=== PATIENT | male | born 1950 | race Caucasian/White ===

== ENCOUNTER 2017-11-16 23:47 | Inpatient (IN) | payer OTHER, MEDICARE ==
[~2017-11-16] VITALS: Ht 182.9 cm; Wt 74.4 kg
[2017-11-17] MEDS ORDERED: ASPIRIN 81 MG TAB.CHEW PO ONE
[2017-11-17] MEDS ORDERED: IV NS 0.9% 1,000 ML BAG IV ONE
[2017-11-17] MEDS ORDERED: MORPHINE SULFATE INJ 2 MG/ML DISP.SYRIN IV ONE
[2017-11-17] MEDS ORDERED: NITROGLYCERIN 0.4 MG/TAB BOTTLE SL ONE
[2017-11-17] MEDS ORDERED: NITROGLYCERIN PACKET 1 GM PACKET TD ONE
[2017-11-17] MEDS ORDERED: ONDANSETRON HCL/PF 4 MG/2 ML VIAL IVP ONE
--- NOTE | 2017-11-17 00:05 | NUR ---
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 PT STATES CP RADIATED DOWN L ARM WITH PRESSURE LIKE PAIN 12/11. -N/V/D. +DIZZINESS. PT STATES HE HAS BEEN DRINKING ALCOHOL PAID SEARCH ANALYST. PT IS AAOX4. RESP EVEN AND UNLABORED. NO S/S OF ACUTE DISTRESS NOTED. SKIN WARM AND DRY TO TOUCH. PT SAFETY AND COMFORT MEASURES IN PLACE. PT PLACED ON HALL PORTER AND POX. PER , PT PLACED ON NC 3L/M. BEDSIDE FOR EVAL. WILL CONTINUE TO MONITOR PT.
[2017-11-17] MEDS ORDERED: MORPHINE SULFATE INJ 4 MG/ML DISP.SYRIN ONE (00:10)
[2017-11-17] MEDS ORDERED: ONDANSETRON HCL/PF 4 MG/2 ML VIAL ONE (00:10)
[2017-11-17] MEDS ORDERED: NITROGLYCERIN 0.4 MG/TAB BOTTLE ONE (00:11)
[2017-11-17] MEDS ORDERED: ASPIRIN 81 MG TAB.CHEW ONE (00:11)
[2017-11-17] MEDS ORDERED: NITROGLYCERIN PACKET 1 GM PACKET ONE (00:11)
[2017-11-17 00:15] LABS: BASOPHILS % (AUTO) 0.7 % (0.0-2.0); EOSINOPHILS % (AUTO) 5.7 % (0.0-6.0); HEMATOCRIT 46 % (39-51); HEMOGLOBIN 15.4 g/dL (13.5-17.5); LYMPHOCYTES # (AUTO) 1.9 /CMM (0.8-4.8); LYMPHOCYTES % (AUTO) 30.9 % (20.0-44.0); MEAN CORPUSCULAR HGB CONC 34 g/dl (31.0-36.0); MEAN CORPUSCULAR VOLUME 89 fL (80-96); MONOCYTES # (AUTO) 0.5 /CMM (0.1-1.30); MONOCYTES % (AUTO) 7.3 % (2.0-12.0); NEUTROPHILS # (AUTO) 3.5 /CMM (1.8-8.9); NEUTROPHILS % (AUTO) 55.4 % (43.0-81.0); PLATELET COUNT (AUTO) 186 /CMM (150-450); RED BLOOD CELL COUNT(AUTO) 5.11 MIL/uL (4.5-6.0); WHITE BLOOD COUNT (AUTO) 6.2 K/uL (4.3-11.0)
--- NOTE | 2017-11-17 00:22 | NUR ---
PT RECEIVED 1 DOSE OF SUBLINGUAL NITRO, SECOND DOSE HELD D/T LOW BP. MD MADE AWARE. PT STATES CP DECREASED FROM 6/10 TO 3/10.
[2017-11-17 00:23] LABS: CALCIUM, SERUM 9.5 mg/dL (8.5-10.1); POTASSIUM 3.4 mmol/L (3.5-5.1)
[2017-11-17 00:28] LABS: INR 0.98 (0.87-1.13)
[2017-11-17 00:31] LABS: TROPONIN I 0.033 ng/mL (0.00-0.056)
--- NOTE | 2017-11-17 00:35 | NUR ---
PT'S BP LOW. MD MADE AWARE. PER , HOLD NITRO-PATCH
[2017-11-17 00:36] LABS: ALBUMIN 3.6 g/dL (3.4-5.0); BILIRUBIN,DIRECT 0.1 mg/dL (0.0-0.2); BILIRUBIN,TOTAL 0.2 mg/dL (0.2-1.0); TOTAL PROTEIN, SERUM 7.5 g/dL (6.4-8.2)
--- NOTE | 2017-11-17 01:38 | NUR ---
report given to cable television technicianvicente howe for alec.
--- NOTE | 2017-11-17 01:43 | NUR ---
PT DOES NOT HAVE HIS MEDICATION LIST ON HIM AND IS UNABLE TO REMEMBER HIS MEDICATIONS.
[2017-11-17 02:10] VITALS: BP 131/87
[2017-11-17 02:15] VITALS: BP 131/87
--- NOTE | 2017-11-17 02:20 | NUR ---
RECEIVED THE PT FROM ER IN STABLE CONDITION. A, [facility], MOSTLY [id number] W/ LIMITED [facility]. UNABLE TO PROVIDE FULL MEDICAL HX DUE TO LANGUAGE BARRIER. BREATHING EVENLY. NO SOB. NAD. STILL W/ C/O CHEST PAIN. REFUSED MORPHINE AT THIS TIME. VSS . PT WS PLACED ON MARGARINE MAKER READING V PACING. NEEDS ATTENDED. BED LOW LOCKED .CALL LIGHT WITHIN REACH. WILL CONT TO MONITOR AND WILL F/U W/ MD'S ORDERS/
--- NOTE | 2017-11-17 02:28 | NUR ---
called lab to draw the troponin level due at 0200.
[2017-11-17] MEDS ORDERED: NITROGLYCERIN 0.4 MG/TAB BOTTLE SL PRN (02:30)
[2017-11-17] MEDS ORDERED: MORPHINE SULFATE INJ 4 MG/ML DISP.SYRIN IV PRN (02:30)
[2017-11-17] MEDS ORDERED: MAG HYDROX/AL HYDROX/SIMETH 30 ML UDC PO PRN (02:30)
[2017-11-17] MEDS ORDERED: HYDROCODONE/APAP 5/325MG 1 EACH TABLET PO PRN (02:30)
[2017-11-17] MEDS ORDERED: ONDANSETRON HCL/PF 4 MG/2 ML VIAL IVP PRN (02:30)
[2017-11-17] MEDS ORDERED: ACETAMINOPHEN 325 MG TABLET PO PRN (02:30)
[2017-11-17] MEDS ORDERED: Z GUARD REMEDY 2 OZ OINT TP PRN (02:30)
[2017-11-17] MEDS ORDERED: ENOXAPARIN SODIUM 40 MG/0.4 ML DISP.SYRIN SQ SCH ×2 (02:30→21:00)
[2017-11-17] MEDS ORDERED: ZOLPIDEM TARTRATE 5 MG TABLET PO PRN (02:30)
[2017-11-17 04:00] VITALS: BP 96/51
--- NOTE | 2017-11-17 06:37 | NUR ---
PT IN BED AWAKE SLEEPING AROUSES EASILY.BREATHING EVENLY. NO SOB. NO ACUTE EVENT DURING THE NIGHT .. NO C/O PAIN OR DISCOMFORT AT THIS TIME. NO C/O CP. V PACING ON TELE MONITOR. NEEDS ATTENDED. ASSISTED W/ ADLS. BED LOW LOCKED. CALL LIGHT WITHIN REACH,.WILL CONT TO MONITOR AND WILL ENDORSE TO AM SHIFT FOR MELISA . PATIENT DOES NOT RECAL THE LIST OF THE MEDICATIONS HE IS TAKING AT HOME . PT WAS ADVISED TO ASK THE FAMILY TO PROVIDED US WITH THE LIST. WILL ENDORSE TO AM SHIFT TO F/U.
--- NOTE | 2017-11-17 07:10 | NUR ---
MS RN OPENING NOTES PATIENT IN BED ALERT ORIENTED X 4. NO ACUTE DISTRESS NOTED, BREATHING UNLABORED.DENIED ANY PAIN. IV ACCESS PATENT AND INTACT. SAFETY MEASURES IN PLACE. CALL LIGHT WITHIN REACH. WILL CONTINUE TO MONITOR ACCORDINGLY.
[2017-11-17 08:00] VITALS: BP 103/65
[2017-11-17] MEDS ORDERED: IV NS 0.9% 1,000 ML IV PRN (08:32)
--- NOTE | 2017-11-17 08:37 | NUR ---
MS RN NOTES SEEN AND EVALUATED BY DR FLYNN WITH NEW ORDERS MADE. NOTED AND CARRIED OUT. PATIENT ON NPO FOR STRESS TEST.
--- NOTE | 2017-11-17 08:37 | NUR ---
LAST MODEL DEPARTMENT SUPERVISOR NOTES SEEN AND EVALUATED BY DR FLYNN WITH NEW ORDERS MADE. NOTED AND CARRIED OUT.
[2017-11-17] MEDS: POTASSIUM CHLORIDE 20 MEQ TAB.PRT.SR PO SCH ×6 (09:00→14:55)
[2017-11-17 10:06] LABS: THYROID STIMULATING HORMONE 0.957 uIU/mL (0.358-3.74)
[2017-11-17] MEDS ORDERED: SIMV20TA6 PO (10:24)
[2017-11-17] MEDS ORDERED: VALS320T16 PO (10:24)
[2017-11-17] MEDS ORDERED: PANT40TA4 PO (10:24)
[2017-11-17] MEDS ORDERED: HYDR12.55 PO (10:24)
[2017-11-17] MEDS ORDERED: ZOLP10TA6 PO (10:24)
[2017-11-17] MEDS ORDERED: ROPI0.5T PO (10:24)
--- NOTE | 2017-11-17 10:45 | NUR ---
RN NOTES PATIENT PICKED UP FOR STRESS TEST IN STABLE CONDITION.
[2017-11-17] MEDS ORDERED: REGADENOSON 0.4 MG/5 ML DISP.SYRIN IVP ONE (11:14)
--- NOTE | 2017-11-17 11:45 | NUR ---
MONUMENT MASON NOTES SEEN AND EVALUATED BY ELLA MCCARTHY DNP, MADE AWARE OF HOME MEDICATIONS NEEDS TO BE RECONCILLED. WITH NEW ORDERS MADE, NOTED AND CARRIED OUT.
--- NOTE | 2017-11-17 11:50 | NUR ---
RN NOTES PATIENT CAME BACK IN STABLE CONDITION, STRESS TEST DONE. PATIENT NO LONGER ON NPO.
[2017-11-17] MEDS: ASPIRIN 81 MG TAB.CHEW PO SCH (12:18)
[2017-11-17 15:53] VITALS: BP 116/72
[2017-11-17] MEDS ORDERED: ropiniROLE 0.5 MG TABLET PO SCH (18:00)
[2017-11-17] MEDS ORDERED: SIMVASTATIN 20 MG TABLET PO SCH (18:00)
--- NOTE | 2017-11-17 18:47 | NUR ---
RN NOTES PATIENT IN BED ALERT ORIENTED X 3. NO ACUTE DISTRESS NOTED. BREATHING UNLABORED. IV ACCESS PATENT AND INTACT, NO REDNESS OR SWELLING NOTED. DUE MEDICATIONS GIVEN, NO ASE NOTED. NEEDS ATTENDED AND ANTICIPATED. SAFETY MEASURE IN PLACE. CALL LIGHT WITHIN REACH. WILL CONTINUE TO MONITOR, WILL ENDORSE TO NIGHT NURSE FOR CONTINUITY OF CARE.
--- NOTE | 2017-11-17 19:00 | NUR ---
MS RN NOTES RECEIVE PT IN BED A/O X 4, NO S/S OF DISTRESS, SAFETY MEASURES IN PLACE, CALL LIGHT WITHIN REACH, WILL CONTINUE TO MONITOR
[2017-11-17 20:00] VITALS: BP 124/79
[2017-11-17] MEDS ORDERED: ZOLPIDEM TARTRATE 10 MG TABLET PO PRN (22:00)
--- NOTE | 2017-11-18 06:13 | NUR ---
MS RN NOTES ASLEEP AND EASILY AWAKEN, HOB ELEVATED, STABLE NO S/S OF ACUTE DISTRESS OR SOB NOTED. TOLERATING ROOM AIR 100% RESPIRATIONS EVEN AND UNLABORED. NEEDS ATTENDED AND ANTICIPATED; AFEBRILE, KEPT CLEAN AND DRY AND COMFORTABLE. NO COMPLAIN OF CHEST PAIN THROUGHOUT THE SHIFT. NURSING CARE RENDERED, SAFETY MEASURES IN PLACE. BED LOW LOCKED SIDE RAILS UP, CALL LIGHT AND BEDSIDE TABLE WITHIN REACH. ENDORSE TO THE NEXT SHIFT POC.
[2017-11-18 06:45] LABS: BASOPHILS % (AUTO) 0.6 % (0.0-2.0); EOSINOPHILS % (AUTO) 5.8 % (0.0-6.0); HEMATOCRIT 43 % (39-51); HEMOGLOBIN 14.5 g/dL (13.5-17.5); LYMPHOCYTES # (AUTO) 1.5 /CMM (0.8-4.8); LYMPHOCYTES % (AUTO) 25.3 % (20.0-44.0); MEAN CORPUSCULAR HGB CONC 34 g/dl (31.0-36.0); MEAN CORPUSCULAR VOLUME 89 fL (80-96); MONOCYTES # (AUTO) 0.5 /CMM (0.1-1.30); MONOCYTES % (AUTO) 8.7 % (2.0-12.0); NEUTROPHILS # (AUTO) 3.6 /CMM (1.8-8.9); NEUTROPHILS % (AUTO) 59.6 % (43.0-81.0); PLATELET COUNT (AUTO) 191 /CMM (150-450); RDW COEFFICIENT OF VARIATION 12.6 (11.5-15.0)
--- NOTE | 2017-11-18 07:05 | NUR ---
MS RN NOTES PATIENT IN BED ALERT ORIENTED X4. NO ACUTE DISTRESS NOTED. BREATHING UNLABORED. DENIED ANY PAIN. IV ACCESS PATENT AND INTACT. SAFETY MEASURES IN PLACE. CALL LIGHT WITHIN REACH. WILL CONTINUE TO MONITOR ACCORDINGLY.
[2017-11-18 07:09] LABS: CALCIUM, SERUM 8.8 mg/dL (8.5-10.1); CREATININE 0.8 mg/dL (0.6-1.3); MAGNESIUM 1.8 mg/dL (1.8-2.4); PHOSPHORUS 2.7 mg/dL (2.5-4.9); POTASSIUM 4.3 mmol/L (3.5-5.1)
[2017-11-18] MEDS ORDERED: PANTOPRAZOLE 40 MG TABLET.DR PO SCH (07:30)
[2017-11-18 08:00] VITALS: BP 134/82
[2017-11-18] MEDS: ASPIRIN 81 MG TAB.CHEW PO SCH (08:11)
[2017-11-18 08:13] VITALS: BP 134/82
[2017-11-18] MEDS ORDERED: HYDROCHLOROTHIAZIDE 25 MG TABLET PO SCH (09:00)
[2017-11-18] MEDS ORDERED: VALSARTAN 80 MG TABLET PO SCH (09:00)
[2017-11-18] MEDS ORDERED: NICOTINE PATCH (14MG) 14 MG PATCH.TD24 TD SCH (09:00)
[2017-11-18] MEDS ORDERED: ASPIRIN 81 MG TAB.CHEW PO SCH (09:30)
[2017-11-18] MEDS ORDERED: ASPI-1169 PO (10:07)
--- NOTE | 2017-11-18 10:10 | NUR ---
MS RN NOTES SEEN AND EVALUATED BY ELLA MCCARTHY DNP, WITH NEW ORDERS NOTED AND CARRIED OUT.
--- NOTE | 2017-11-18 16:30 | NUR ---
MS RN NOTES PATIENT DISCHARGED IN STABLE CONDITION. NO ACUTE DISTRESS NOTED. BREATHING UNLABORED. DISCHARGE INSTRUCTIONS GIVEN TO THE PATIENT , VERBALIZED UNDERSTANDING. ALL BELONGINGS ACCOUNTED FOR. IV ACCESS REMOVED, NO SWELLING OR REDNESS NOTED. WHEELED TO THE LOBBY ANS ASSISTED TO A PRIVATE CARE TELECOMMUNICATIONS CONSULTANT BY A FRIEND.
== END 2017-11-18 16:15 | disposition home or self-care (01) | DRG 241 ==
LOC: ER 23:48 → TELE 11-17 01:34 → MED 11-17 08:58
PROVIDERS: ADMIT Nurse Practitioner Acute Care; ATTEND Nurse Practitioner Acute Care
DX: K29.20 Alcoholic gastritis without bleeding (principal); N17.0 Acute kidney failure with tubular necrosis; J44.9 Chronic obstructive pulmonary disease, unspecified; I10 Essential (primary) hypertension; F10.129 Alcohol abuse with intoxication, unspecified; Y90.6 Blood alcohol level of 120-199 mg/100 ml; Z95.0 Presence of cardiac pacemaker; E87.6 Hypokalemia; K21.9 Gastro-esophageal reflux disease without esophagitis; E78.5 Hyperlipidemia, unspecified; G20 Parkinson's disease; F17.210 Nicotine dependence, cigarettes, uncomplicated; G47.9 Sleep disorder, unspecified
CPT/HCPCS: 36415; 71045-TC; 80048-TC; 80061-TC; 80076-TC; 83735-TC; 83880; 84100-TC; 84439-TC; 84443-TC; 84484-TC; 85025-TC; 85730-TC; 87081-TC; 93307-TC; 94799-TC; A4606; A9502; G0480; J1650; J2270; J2405; J2785; J7030; Z7610